=== PATIENT | male | born 1955 | race Caucasian/White ===

== ENCOUNTER 2016-10-06 11:57 | Emergency (ER) | payer OTHER ==
[2016-10-06 12:50] VITALS: BP 129/81
--- NOTE | 2016-10-06 14:01 | UC ---
Upper Extremity HPI - HPI Summary HPI Summary: pt presents with c/o right mid forearm pain and swelling s/p falling on ice last night. - History of Current Complaint Chief Complaint: UCUpperExtremity Stated Complaint: RIGHT ARM INJURY/FALL Time Seen by Provider: 10/06/16 13:58 Hx Obtained From: Patient ?: No Onset/Duration: Sudden Onset Severity Initially: Moderate Severity Currently: Mild Location Of Pain: Is Discrete @ - right forearem mid shaft, large hematoma ~ 3 cm wide and 1 cm in height Character: Dull, Aching Aggravating Factor(s): Movement Alleviating Factor(s): Rest Associated Signs And Symptoms: Positive: Swelling, Bruising - Risk Factors Non-Orthopedic Risk Factor: Negative - Allergies/Home Medications Allergies/Adverse Reactions: Allergies Allergy/AdvReac Type Severity Reaction Status Date / Time hayfever Allergy Congestion Uncoded 10/06/16 12:41 Home Medications: Home Medications Multiple Vitamins W/ Minerals [Multivitamin] 1 tab PO DAILY 10/06/16 [History Confirmed 10/06/16] PMH/Surg Hx/FS Hx/Imm Hx Previously Healthy: Yes Endocrine History Of: Reports: Dyslipidemia Denies: Diabetes, Thyroid Disease, Hyperthyroidism, Hypothyroidism Cardiovascular History Of: Reports: Hypertension Denies: Cardiac Disorders, Pacemaker/ICD, Myocardial Infarction, Congestive Heart Failure, Atrial Fibrillation, Deep Vein Thrombosis, Bleeding Disorders Respiratory History Of: Reports: Pneumonia Denies: COPD, Asthma, Bronchitis, Pulmonary Embolism GI/ History Of: Denies: Gastroesophageal Reflux, Ulcer, Gastrointestinal Bleed, Gall Bladder Disease, Kidney Stones, Diverticulitis, Renal Disease, Urosepsis Neurological History Of: Denies: TIA, CVA, Dementia, Seizures, Migraine Psychological History Of: Denies: Anxiety, Depression, Bipolar Disorder, Schizophrenia, Post Traumatic Stress Disorder Cancer History Of: Reports: Prostate Cancer - He had his prostate removed 2 years ago. Denies: Lung Cancer, Colorectal Cancer, Breast Cancer, Cervical Cancer Other History Of: Negative For: HIV, Hepatitis B, Hepatitis C - Surgical History Surgical History: Yes Surgery Procedure, Year, and Place: prostate 2013, appy, right inguinal hernia with mesh 2013 - Family History Known Family History: Positive: Hypertension - Social History Alcohol Use: Daily Alcohol Amount: 4-5 drinks Substance Use Type: None Smoking Status (MU): Current Some Day Smoker Type: Cigars Household Exposure Type: Cigarettes Review of Systems Constitutional: Negative Skin: Bruising - right mid forearm, medial aspect Eyes: Negative ENT: Negative Respiratory: Negative Cardiovascular: Negative Gastrointestinal: Negative Genitourinary: Negative Motor: Decreased ROM - secondary to pain Neurovascular: Negative Musculoskeletal: Arthralgia, Decreased ROM - right mid forearm, medial aspect, Edema Neurological: Weakness Psychological: Negative All Other Systems Reviewed And Are Negative: Yes Physical Exam Triage Information Reviewed: Yes Appearance: Well-Appearing Vital Signs: Initial Vital Signs Temp 98.7 F 10/06/16 12:45 Pulse 93 10/06/16 12:45 Resp 16 10/06/16 12:45 BP 129/81 10/06/16 12:45 Pulse Ox 100 10/06/16 12:45 Eye Exam: Normal Neck exam: Normal Respiratory Exam: Other Respiratory: Positive: No respiratory distress Musculoskeletal Exam: Other Musculoskeletal: Positive: Edema @ - right mid forearm, medial aspect, bruising , hematome, ~ 3 cm swide and 1 cm, height, tender with palpation Neurological Exam: Normal Skin Exam: Other - bruising, right mid medial forearm Upper Extremity Course/Dx - Differential Dx/Diagnosis Differential Diagnosis/HQI/PQRI: Contusion, Fracture (Closed), Hematoma Provider Diagnoses: hematoma right forearm. contusion right forearm Discharge - Discharge Plan Condition: Stable Disposition: HOME Patient Education Materials: Hematoma (ED), Contusion in Adults (ED) Referrals: Taj Lou MD [Primary Care Provider] - Additional Instructions: Please follow up with your PCP or return to clinic as needed.
--- NOTE | 2016-10-06 14:31 | RAD ---
INDICATION: Right forearm hematoma after a fall the previous night TECHNIQUE: 2 views of the right forearm were obtained. FINDINGS: The bones are normal alignment. Joint spaces appear maintained. On the AP view of the forearm there is a triangular bony density immediately adjacent to the medial humeral condyle. Otherwise there is no definite fracture or dislocation. IMPRESSION: Bony focus adjacent to the medial humeral condyle could represent an avulsion injury in the correct clinical setting. Please correlate to point tenderness at this site.
== END 2016-10-06 14:25 | disposition home or self-care (01) ==
LOC: UCCORT 11:57
DX: S50.11XA Contusion of right forearm, initial encounter (principal); W00.0XXA Fall on same level due to ice and snow, initial encounter; Y93.9 Activity, unspecified; Y92.9 Unspecified place or not applicable; I10 Essential (primary) hypertension; Z72.0 Tobacco use
CPT/HCPCS: 99211; G0463

== ENCOUNTER 2017-10-19 17:03 | Emergency (ER) | payer OTHER ==
--- NOTE | 2017-10-19 18:11 | UC ---
Dental HPI - HPI Summary HPI Summary: Pt c/o "pus pocket" bottom front, lower teeth that he states he has "pus pockets that fill and he drains" and is very painful. Pt saw his dental care provider this week and was told to get another opinion. - History of Current Complaint Stated Complaint: ABSCESS IN MOUTH Time Seen by Provider: 10/19/17 17:51 Hx Obtained From: Patient Onset/Duration: Gradual Onset, Lasting Weeks, Resolved Severity: Moderate Aggravating Factor(s): Chewing Alleviating Factor(s): OTC Meds Related History: Discharge, Swelling - Allergies/Home Medications Allergies/Adverse Reactions: Allergies Allergy/AdvReac Type Severity Reaction Status Date / Time hayfever Allergy Congestion Uncoded 10/19/17 18:12 PMH/Surg Hx/FS Hx/Imm Hx Previously Healthy: Yes Other History Of: Negative For: HIV, Hepatitis B, Hepatitis C - Surgical History Surgical History: Yes Surgery Procedure, Year, and Place: prostate 2013, appy, right inguinal hernia with mesh 2013 - Family History Known Family History: Positive: Hypertension - Social History Occupation: Retired Lives: With Family Alcohol Use: Daily Alcohol Amount: 4-5 drinks Substance Use Type: None Smoking Status (MU): Current Some Day Smoker Type: Cigars Have You Smoked in the Last Year: Yes Household Exposure Type: Cigarettes Review of Systems Constitutional: Negative Skin: Negative Eyes: Negative ENT: Dental Pain Respiratory: Negative Cardiovascular: Negative Gastrointestinal: Negative Genitourinary: Negative Motor: Negative Neurovascular: Negative Musculoskeletal: Negative Neurological: Negative Psychological: Negative Is Patient Immunocompromised?: No All Other Systems Reviewed And Are Negative: Yes Physical Exam Triage Information Reviewed: Yes Appearance: Well-Appearing Vital Signs Reviewed: Yes Eye Exam: Normal ENT Exam: Normal Dental Exam: Normal Neck exam: Normal Respiratory Exam: Normal Musculoskeletal Exam: Normal Neurological Exam: Normal Psychological Exam: Normal Skin Exam: Normal Dental Complaint Course/Dx - Differential Dx/Diagnosis Differential Diagnosis/Dx: Dental Abscess, Gingivitis Provider Diagnoses: dental abscess Discharge - Sign-Out/Discharge Documenting (check all that apply): Discharge - Discharge Plan Condition: Stable Disposition: HOME Prescriptions: Clindamycin Cap(NF) [Clindamycin Cap 300 mg Cap(NF)] 300 mg PO Q8H #30 cap Patient Education Materials: Dental Abscess (ED) Referrals: Erika Johnson [Primary Care Provider] - Additional Instructions: Please follow up with a dental care provider as soon as possible. - Billing Disposition and Condition Condition: STABLE Disposition: HOME
[2017-10-19 18:21] VITALS: BP 132/88
== END 2017-10-19 18:21 | disposition home or self-care (01) ==
LOC: UCCORT 17:03
DX: K04.7 Periapical abscess without sinus (principal); F17.210 Nicotine dependence, cigarettes, uncomplicated
CPT/HCPCS: 99212; G0463

== ENCOUNTER 2018-10-13 08:30 | Emergency (ER) | payer BC, OTHER ==
[2018-10-13 09:19] VITALS: BP 138/83
[2018-10-13 09:32] LABS: Influenza A Molecular POSITIVE (Negative)
--- NOTE | 2018-10-13 09:40 | UC ---
Respiratory Complaint HPI - HPI Summary HPI Summary: 63-year-old male comes in with a chief complaint of weeks of upper respiratory tract infection symptoms. Over the weekend patient started feeling worse and started feeling congestion in his right upper chest with azithromycin of pneumonia she's had in the past. He does have body aches fevers feels fatigued. Did take some ibuprofen which did help with the symptoms. No wheezing or history of asthma or COPD. He has a sharp pain in the right upper chest that splinting. He does not have chest pain at rest. - History of Current Complaint Chief Complaint: UCRespiratory Stated Complaint: UPPER RESPIRATORY CONCERN Time Seen by Provider: 10/13/18 09:15 Pain Intensity: 0 - Allergies/Home Medications Allergies/Adverse Reactions: Allergies Allergy/AdvReac Type Severity Reaction Status Date / Time hayfever Allergy Congestion Uncoded 10/13/18 09:13 Home Medications: Home Medications Aspirin 81 mg CHEW TAB* [Aspirin Low Dose TAB*] 81 mg PO DAILY 10/13/18 [ History Confirmed 10/13/18] Hydrochlorothiazide TAB* [Hydrodiuril TAB*] 25 mg PO DAILY 10/13/18 [History Confirmed 10/13/18] PMH/Surg Hx/FS Hx/Imm Hx Previously Healthy: Yes Endocrine History: Dyslipidemia Cardiovascular History: Hypertension Other History Of: Negative For: HIV, Hepatitis B, Hepatitis C - Surgical History Surgical History: Yes Surgery Procedure, Year, and Place: prostate 2013, appy, right inguinal hernia with mesh 2013 - Family History Known Family History: Positive: Hypertension - Social History Alcohol Use: Occasionally Alcohol Amount: 4-5 drinks Substance Use Type: None Smoking Status (MU): Current Some Day Smoker Type: Cigars Have You Smoked in the Last Year: Yes Household Exposure Type: Cigarettes Review of Systems All Other Systems Reviewed And Are Negative: Yes Constitutional: Positive: Fever, Chills Skin: Positive: Negative Eyes: Positive: Negative ENT: Positive: Nasal Discharge, Sinus Congestion Respiratory: Positive: Other - SEE HPI Cardiovascular: Positive: Negative Gastrointestinal: Positive: Negative Motor: Positive: Negative Neurovascular: Positive: Negative Musculoskeletal: Positive: Myalgia Neurological: Positive: Negative Psychological: Positive: Negative Is Patient Immunocompromised?: No Physical Exam Triage Information Reviewed: Yes Appearance: No Pain Distress, Well-Nourished, Ill-Appearing - MILD Vital Signs: Initial Vital Signs Temp 98.7 F 10/13/18 09:14 Pulse 100 10/13/18 09:14 Resp 18 10/13/18 09:14 BP 138/83 10/13/18 09:14 Pulse Ox 100 10/13/18 09:14 Vital Signs Reviewed: Yes Eye Exam: Normal Eyes: Positive: Conjunctiva Clear ENT: Positive: Pharyngeal erythema, Nasal congestion, TMs normal Neck exam: Normal Neck: Positive: Supple Respiratory: Positive: Lungs clear, Normal breath sounds, No respiratory distress Cardiovascular: Positive: Tachycardia Musculoskeletal Exam: Normal Musculoskeletal: Positive: Strength Intact, ROM Intact Neurological Exam: Normal Neurological: Positive: Alert, Muscle Tone Normal Psychological Exam: Normal Psychological: Positive: Age Appropriate Behavior Skin Exam: Normal Respiratory Course/Dx - Course Course Of Treatment: Due to duration of upper respiratory tract infection symptoms and a chest congestion and the patient stating this feels like pneumonia we'll treat with an antibiotic. Patient's also positive for flu. Follow-up up with not improved or worsened. - Differential Dx/Diagnosis Provider Diagnosis: Bronchitis, Influenza Discharge - Sign-Out/Discharge Documenting (check all that apply): Patient Departure All imaging exams completed and their final reports reviewed: No Studies - Discharge Plan Condition: Stable Disposition: HOME Prescriptions: Azithromyxin CHIQUI (NF) [Z-Chiqui (Zithromax) 250 mg tabs #6] 2 tab PO .TODAY, THEN 1 DAILY #6 tab Oseltamivir CAP* [Tamiflu CAP*] 75 mg PO BID #10 cap Patient Education Materials: Influenza (ED), Acute Bronchitis (ED) Referrals: Erika Johnson [Primary Care Provider] - Additional Instructions: FOLLOW UP WITH YOUR DOCTOR IF NOT COMPLETELY IMPROVED. GET REEVALUATED SOONER IF YOUR CONDITION WORSENS OR ANY QUESTIONS OR CONCERNS. - Billing Disposition and Condition Condition: STABLE Disposition: Home
== END 2018-10-13 09:49 | disposition home or self-care (01) ==
LOC: UCCORT 08:30
DX: J11.1 Influenza due to unidentified influenza virus with other respiratory manifestations (principal); F17.210 Nicotine dependence, cigarettes, uncomplicated; I10 Essential (primary) hypertension; Z79.82 Long term (current) use of aspirin; Z91.09 Other allergy status, other than to drugs and biological substances
CPT/HCPCS: 99212; G0463